=== PATIENT | male | born 1985 | race Caucasian/White ===

== ENCOUNTER 2020-12-25 18:25 | Emergency (ER) | payer BC ==
[2020-12-25] MEDS ORDERED: LODINE CAP 300300 MG PO (21:00)
== END 2020-12-25 21:02 | disposition home or self-care (01) ==
LOC: ER1 18:25
DX: M54.5 Low back pain (principal); E11.9 Type 2 diabetes mellitus without complications; R53.1 Weakness; R20.0 Anesthesia of skin; R20.2 Paresthesia of skin
CPT/HCPCS: 72131; 99284